=== PATIENT | male | born 1975 | race African-American/Black ===

== ENCOUNTER 2023-02-13 10:00 | Inpatient (IN) | payer OTHER ==
[2023-02-13] VITALS (18 sets, daily range): BP systolic 120–178; BP diastolic 72–121; TEMP 97.2–98.7; O2SAT 94–100
[~2023-02-13] VITALS: Ht 182.9 cm; Wt 68.8 kg
[2023-02-13] MEDS ORDERED: PANTOPRAZOLE 40MG VIAL IV ONE (10:20)
[2023-02-13] MEDS ORDERED: SUCRALFATE SUSP 1GM/10ML UD PO ONE (10:20)
[2023-02-13] MEDS ORDERED: NITROGLYCERIN 0.4MG SUBL TABLET SL PRN (10:55)
[2023-02-13 11:02] LABS: BASO % 0.3 % (0.0-1.0); EOS # 0.1 10^3/uL (0.0-0.5); EOS % 0.9 % (0.0-3.0); HEMATOCRIT 41.2 % (42.0-52.0); HEMOGLOBIN 13.5 g/dl (13.5-17.5); LYMPH # 1.2 10^3/uL (1.5-5.0); LYMPH % 17.8 % (24.0-44.0); MEAN CORPUSCULAR HEMOGLOBIN 30.3 pg (27.0-33.0); MEAN CORPUSCULAR HGB CONC 32.8 g/dl (32.0-36.5); MEAN CORPUSCULAR VOLUME 92.4 fl (80.0-96.0); MONO # 0.3 10^3/uL (0.0-0.8); MONO % 4.5 % (2.0-8.0); NEUTROPHILS # 5.3 10^3/uL (1.5-8.5); NEUTROPHILS % 76.4 % (36.0-66.0); PLATELET COUNT, AUTOMATED 232 10^3/uL (150-450); RED BLOOD COUNT 4.46 10^6/uL (4.30-6.10)
[2023-02-13 11:15] LABS: LIPASE 23 U/L (12-53)
[2023-02-13 11:16] LABS: CK-MB VALUE MASS 2.4 NG/ML (<3.6)
[2023-02-13 11:18] LABS: ALBUMIN 3.5 G/DL (3.2-5.2); ALKALINE PHOSPHATASE 72 U/L (46-116); ALT/SGPT 17 U/L (7.0-40); AST/SGOT 20 U/L (<34); BILIRUBIN,DIRECT 0.2 MG/DL (<0.4); BILIRUBIN,TOTAL 0.5 MG/DL (0.3-1.2); BLOOD UREA NITROGEN 10 MG/DL (9-23); CALCIUM LEVEL 8.7 MG/DL (8.5-10.1); CARBON DIOXIDE LEVEL 31 MMOL/L (20-31); CHLORIDE LEVEL 108 MMOL/L (98-107); CREATININE FOR GFR 0.97 MG/DL (0.70-1.30); GLOMERULAR FILTRATION RATE > 60.0 (>60); GLUCOSE, FASTING 129 MG/DL (60-100); POTASSIUM SERUM 4.8 MMOL/L (3.5-5.1); SODIUM LEVEL 141 MMOL/L (136-145); TOTAL PROTEIN 6.5 G/DL (5.7-8.2)
[2023-02-13 11:19] LABS: THYROID STIMULATING HORMONE 2.114 uIU/ML (0.55-4.78)
[2023-02-13 11:20] LABS: FREE T4 1.04 NG/DL (0.89-1.76)
[2023-02-13] MEDS ORDERED: ISOVUE-370 76% 100ML VIAL As Ordered ONE (11:23)
[2023-02-13] MEDS ORDERED: ONDANSETRON 4MG 2ML VIAL IV PRN (11:25)
[2023-02-13] MEDS ORDERED: LEVALBUTEROL 1.25MG 0.5ML CONCENTRATE NEB NEB PRN (11:25)
[2023-02-13] MEDS ORDERED: PERCOCET 5MG/325MG TAB PO PRN ×2 (11:25)
[2023-02-13] MEDS ORDERED: KCL 20MEQ IN D5/NS 1000ML 1,000 ML IV SCH (11:25)
[2023-02-13] MEDS ORDERED: BISACODYL 10MG SUPP PR PRN (11:25)
[2023-02-13 11:41] LABS: CPK CREATINE PHOSPHOKINASE 302 U/L (46-171); MB/CK RELATIVE INDEX 0.79 (< OR =4)
[2023-02-13] MEDS ORDERED: MED REC IN PROGRESS XX SCH (11:45)
[2023-02-13] MEDS: KETOROLAC 30 MG/ML 1ML VIAL IV SCH ×3 (12:06→23:55)
[2023-02-13] MEDS: HEPARIN SOD (PORCINE) 5000UNITS/ML 1ML VIAL/SYRINGE SC SCH ×2 (12:08→23:54)
[2023-02-13] MEDS ORDERED: LIDOCAINE 1% MDV 20ML VIAL SC STA (12:17)
[2023-02-13] MEDS ORDERED: MIDAZOLAM 5MG 5ML VIAL (FOR CHEST TUBE INSERTIONS) IV STA (12:17)
[2023-02-13] MEDS ORDERED: flumazeniL 0.5MG/5ML VIAL IV STA (12:17)
[2023-02-13] MEDS ORDERED: MIDAZOLAM INJ 2MG/2ML VIAL As Ordered ONE (12:30)
[2023-02-13] MEDS ORDERED: HYDR12.55 PO (12:30)
[2023-02-13] MEDS ORDERED: LORA-1041 PO (12:30)
[2023-02-13] MEDS ORDERED: MIDAZOLAM INJ 2MG/2ML VIAL IV STA (12:32)
[2023-02-13] MEDS ORDERED: hydrALAZINE 20MG/ML 1ML VIAL IV PRN (12:35)
[2023-02-13] MEDS ORDERED: HOME MED LIST COMPLETE! XX SCH (12:45)
[2023-02-13 13:11] LABS: MB/CK RELATIVE INDEX 0.7 (< OR =4)
[2023-02-13 13:23] LABS: CK-MB VALUE MASS 3.7 NG/ML (<3.6)
[2023-02-13 13:25] LABS: MB/CK RELATIVE INDEX 1.23 (< OR =4)
[2023-02-13] MEDS ORDERED: KETOROLAC 30 MG/ML 1ML VIAL IV ONE (14:00)
[2023-02-13] MEDS: LEVALBUTEROL 1.25MG 0.5ML CONCENTRATE NEB NEB SCH ×2 (14:53→20:06)
[2023-02-13] MEDS: hydroCHLOROthiazide 12.5 MG CAPSULE PO SCH (15:27)
[2023-02-13] MEDS: DOCUSATE SODIUM 100MG CAPSULE PO SCH (20:22)
[2023-02-14] VITALS (7 sets, daily range): BP systolic 128–157; BP diastolic 81–99; TEMP 97.2–98.3; O2SAT 97–100
[2023-02-14] MEDS: LEVALBUTEROL 1.25MG 0.5ML CONCENTRATE NEB NEB SCH ×4 (02:00→20:10)
[2023-02-14 05:41] LABS: ABG BASE EXCESS 1.4 (-2.0-2.0); ABG HCO3 26.6 MMOL/L (22.0-26.0); ABG O2 SATURATION 97.9 % (95.0-99.0); ABG PARTIAL PRESSURE CO2 44.2 mmHg (35.0-45.0); ABG PARTIAL PRESSURE O2 105.3 mmHg (75.0-100.0); ABG STANDARD HCO3 25.7 MMOL/L. (22.0-26.0); ABG TOTAL CO2 27.9 MMOL/L (22.0-29.0); ABG pH (ARTERIAL) 7.397 UNITS (7.350-7.450)
[2023-02-14] MEDS: ACETAMINOPHEN TAB 650MG DOSE (2X325MG) PO PRN (05:47)
[2023-02-14] MEDS: KETOROLAC 30 MG/ML 1ML VIAL IV SCH ×4 (05:47→23:20)
[2023-02-14 07:51] LABS: BASO % 0.3 % (0.0-1.0); EOS # 0.2 10^3/uL (0.0-0.5); EOS % 2.6 % (0.0-3.0); HEMATOCRIT 41.2 % (42.0-52.0); HEMOGLOBIN 13.7 g/dl (13.5-17.5); LYMPH # 2.4 10^3/uL (1.5-5.0); LYMPH % 35.9 % (24.0-44.0); MEAN CORPUSCULAR HEMOGLOBIN 30.4 pg (27.0-33.0); MEAN CORPUSCULAR HGB CONC 33.3 g/dl (32.0-36.5); MEAN CORPUSCULAR VOLUME 91.4 fl (80.0-96.0); MONO # 0.5 10^3/uL (0.0-0.8); MONO % 7.9 % (2.0-8.0); NEUTROPHILS # 3.5 10^3/uL (1.5-8.5); NEUTROPHILS % 53.1 % (36.0-66.0); PLATELET COUNT, AUTOMATED 247 10^3/uL (150-450); RED BLOOD COUNT 4.51 10^6/uL (4.30-6.10); WHITE BLOOD COUNT 6.6 10^3/uL (4.0-10.0)
[2023-02-14] MEDS: TIOTROPIUM INHALER/CAPSULE (SPIRIVA) INH SCH (08:00)
[2023-02-14 08:23] LABS: BLOOD UREA NITROGEN 12 MG/DL (9-23); CALCIUM LEVEL 8.9 MG/DL (8.5-10.1); CARBON DIOXIDE LEVEL 27 MMOL/L (20-31); CHLORIDE LEVEL 104 MMOL/L (98-107); CREATININE FOR GFR 0.97 MG/DL (0.70-1.30); GLOMERULAR FILTRATION RATE > 60.0 (>60); GLUCOSE, FASTING 129 MG/DL (60-100); POTASSIUM SERUM 3.8 MMOL/L (3.5-5.1); SODIUM LEVEL 139 MMOL/L (136-145)
[2023-02-14] MEDS: DOCUSATE SODIUM 100MG CAPSULE PO SCH ×2 (08:24→20:41)
[2023-02-14] MEDS: PANTOPRAZOLE 40MG TAB (PROTONIX) PO SCH (08:24)
[2023-02-14] MEDS: hydroCHLOROthiazide 12.5 MG CAPSULE PO SCH (08:25)
[2023-02-14] MEDS: MOM 30ML SUSPENSION UDC PO SCH (08:25)
[2023-02-14] MEDS: HEPARIN SOD (PORCINE) 5000UNITS/ML 1ML VIAL/SYRINGE SC SCH ×2 (12:45→23:20)
[2023-02-14] MEDS: NICOTINE 21MG/24HR 1 EA TRANSDERMAL TD SCH (12:54)
[2023-02-15] MEDS: LEVALBUTEROL 1.25MG 0.5ML CONCENTRATE NEB NEB SCH ×4 (01:28→19:38)
[2023-02-15 03:48] VITALS: BP 137/91; TEMP 97.6; O2SAT 100
[2023-02-15 05:27] LABS: BASO % 0.2 % (0.0-1.0); EOS # 0.2 10^3/uL (0.0-0.5); EOS % 3.4 % (0.0-3.0); HEMATOCRIT 39.6 % (42.0-52.0); HEMOGLOBIN 13.2 g/dl (13.5-17.5); LYMPH # 2.4 10^3/uL (1.5-5.0); LYMPH % 47.1 % (24.0-44.0); MEAN CORPUSCULAR HEMOGLOBIN 30.3 pg (27.0-33.0); MEAN CORPUSCULAR HGB CONC 33.3 g/dl (32.0-36.5); MEAN CORPUSCULAR VOLUME 90.8 fl (80.0-96.0); MONO # 0.4 10^3/uL (0.0-0.8); MONO % 8.8 % (2.0-8.0); NEUTROPHILS % 40.5 % (36.0-66.0); PLATELET COUNT, AUTOMATED 223 10^3/uL (150-450); RED BLOOD COUNT 4.36 10^6/uL (4.30-6.10)
[2023-02-15 05:48] LABS: BLOOD UREA NITROGEN 11 MG/DL (9-23); CALCIUM LEVEL 8.3 MG/DL (8.5-10.1); CARBON DIOXIDE LEVEL 30 MMOL/L (20-31); CHLORIDE LEVEL 104 MMOL/L (98-107); CREATININE FOR GFR 0.98 MG/DL (0.70-1.30); GLOMERULAR FILTRATION RATE > 60.0 (>60); GLUCOSE, FASTING 91 MG/DL (60-100); POTASSIUM SERUM 3.7 MMOL/L (3.5-5.1); SODIUM LEVEL 140 MMOL/L (136-145)
[2023-02-15] MEDS: KETOROLAC 30 MG/ML 1ML VIAL IV SCH ×4 (05:57→23:52)
[2023-02-15 08:28] VITALS: BP 149/93; TEMP 98.3; O2SAT 100
[2023-02-15] MEDS: DOCUSATE SODIUM 100MG CAPSULE PO SCH ×2 (08:44→21:30)
[2023-02-15] MEDS: ACETAMINOPHEN TAB 650MG DOSE (2X325MG) PO PRN (08:44)
[2023-02-15] MEDS: MOM 30ML SUSPENSION UDC PO SCH (08:44)
[2023-02-15] MEDS: hydroCHLOROthiazide 12.5 MG CAPSULE PO SCH (08:44)
[2023-02-15] MEDS: PANTOPRAZOLE 40MG TAB (PROTONIX) PO SCH (08:44)
[2023-02-15] MEDS: NICOTINE 21MG/24HR 1 EA TRANSDERMAL TD SCH (08:45)
[2023-02-15] MEDS: TIOTROPIUM INHALER/CAPSULE (SPIRIVA) INH SCH (09:28)
[2023-02-15] MEDS: MIRALAX *UNIT DOSE* 17GM PACKET PO SCH ×2 (10:00→21:00)
[2023-02-15] MEDS ORDERED: ISOVUE-370 76% 100ML VIAL As Ordered ONE (10:32)
[2023-02-15 12:00] VITALS: BP 165/100; TEMP 98.7; O2SAT 99
[2023-02-15] MEDS: HEPARIN SOD (PORCINE) 5000UNITS/ML 1ML VIAL/SYRINGE SC SCH ×2 (12:17→23:53)
[2023-02-15 16:02] VITALS: BP 145/83; TEMP 98.6; O2SAT 99
[2023-02-15 19:46] VITALS: BP 163/96; TEMP 98.2; O2SAT 98
[2023-02-15] MEDS: METAMUCIL (PSYLLIUM) PACKET PO SCH (21:00)
[2023-02-15 23:53] VITALS: BP 145/84; TEMP 98.6; O2SAT 99
[2023-02-16] MEDS: LEVALBUTEROL 1.25MG 0.5ML CONCENTRATE NEB NEB SCH ×4 (01:37→19:39)
[2023-02-16 03:56] VITALS: BP 127/82; TEMP 98.4; O2SAT 100
[2023-02-16] MEDS: KETOROLAC 30 MG/ML 1ML VIAL IV SCH ×4 (05:21→23:35)
[2023-02-16 05:56] LABS: BASO % 0.2 % (0.0-1.0); EOS # 0.2 10^3/uL (0.0-0.5); EOS % 4.2 % (0.0-3.0); HEMATOCRIT 38.6 % (42.0-52.0); HEMOGLOBIN 12.8 g/dl (13.5-17.5); LYMPH # 2.3 10^3/uL (1.5-5.0); LYMPH % 45.4 % (24.0-44.0); MEAN CORPUSCULAR HEMOGLOBIN 30.1 pg (27.0-33.0); MEAN CORPUSCULAR HGB CONC 33.2 g/dl (32.0-36.5); MEAN CORPUSCULAR VOLUME 90.8 fl (80.0-96.0); MONO # 0.4 10^3/uL (0.0-0.8); MONO % 7.6 % (2.0-8.0); NEUTROPHILS # 2.1 10^3/uL (1.5-8.5); NEUTROPHILS % 42.4 % (36.0-66.0); PLATELET COUNT, AUTOMATED 231 10^3/uL (150-450); RED BLOOD COUNT 4.25 10^6/uL (4.30-6.10)
[2023-02-16 06:20] LABS: BLOOD UREA NITROGEN 9 MG/DL (9-23); CALCIUM LEVEL 8.2 MG/DL (8.5-10.1); CARBON DIOXIDE LEVEL 30 MMOL/L (20-31); CHLORIDE LEVEL 103 MMOL/L (98-107); GLOMERULAR FILTRATION RATE > 60.0 (>60); GLUCOSE, FASTING 86 MG/DL (60-100); POTASSIUM SERUM 3.3 MMOL/L (3.5-5.1); SODIUM LEVEL 140 MMOL/L (136-145)
[2023-02-16 06:31] LABS: PROCALCITONIN <0.04 ng/ml
[2023-02-16] MEDS: TIOTROPIUM INHALER/CAPSULE (SPIRIVA) INH SCH (07:06)
[2023-02-16] MEDS ORDERED: POTASSIUM CHLORIDE 10MEQ SR TABLET PO ONE (07:30)
[2023-02-16 08:13] VITALS: BP 156/98; TEMP 97.8; O2SAT 100
[2023-02-16] MEDS: METAMUCIL (PSYLLIUM) PACKET PO SCH ×2 (09:00→20:02)
[2023-02-16] MEDS: MIRALAX *UNIT DOSE* 17GM PACKET PO SCH ×2 (09:00→20:02)
[2023-02-16] MEDS: MOM 30ML SUSPENSION UDC PO SCH (09:00)
[2023-02-16] MEDS: PANTOPRAZOLE 40MG TAB (PROTONIX) PO SCH (09:23)
[2023-02-16] MEDS: DOCUSATE SODIUM 100MG CAPSULE PO SCH ×2 (09:23→20:02)
[2023-02-16] MEDS: hydroCHLOROthiazide 12.5 MG CAPSULE PO SCH (09:23)
[2023-02-16] MEDS: NICOTINE 21MG/24HR 1 EA TRANSDERMAL TD SCH (09:24)
[2023-02-16] MEDS: HEPARIN SOD (PORCINE) 5000UNITS/ML 1ML VIAL/SYRINGE SC SCH ×2 (12:12→23:32)
[2023-02-16 12:29] VITALS: BP 148/80; TEMP 97.5; O2SAT 100
[2023-02-16 12:33] LABS: PARTIAL THROMBOPLASTIN TIME 29.7 SECONDS (24.8-34.2); PROTHROMBIN TIME 12.9 SECONDS (12.5-14.5)
[2023-02-16 16:13] VITALS: BP 160/85; TEMP 97.3; O2SAT 98
[2023-02-16 16:34] VITALS: BP 144/82
[2023-02-16 20:26] VITALS: BP 158/96; TEMP 97.9; O2SAT 96
[2023-02-17] VITALS: BP 155/86; TEMP 97.9; O2SAT 98
[2023-02-17] MEDS: LEVALBUTEROL 1.25MG 0.5ML CONCENTRATE NEB NEB SCH ×5 (00:45→20:50)
[2023-02-17 04:00] VITALS: BP 144/87; TEMP 97.7; O2SAT 97
[2023-02-17] MEDS: KETOROLAC 30 MG/ML 1ML VIAL IV SCH ×3 (05:29→18:00)
[2023-02-17 07:33] LABS: BASO % 0.2 % (0.0-1.0); EOS # 0.2 10^3/uL (0.0-0.5); EOS % 3.1 % (0.0-3.0); HEMATOCRIT 38.4 % (42.0-52.0); HEMOGLOBIN 12.6 g/dl (13.5-17.5); LYMPH % 35.8 % (24.0-44.0); MEAN CORPUSCULAR HEMOGLOBIN 30.2 pg (27.0-33.0); MEAN CORPUSCULAR HGB CONC 32.8 g/dl (32.0-36.5); MEAN CORPUSCULAR VOLUME 92.1 fl (80.0-96.0); MONO # 0.4 10^3/uL (0.0-0.8); MONO % 7.7 % (2.0-8.0); NEUTROPHILS # 2.9 10^3/uL (1.5-8.5); NEUTROPHILS % 52.6 % (36.0-66.0); PLATELET COUNT, AUTOMATED 248 10^3/uL (150-450); RED BLOOD COUNT 4.17 10^6/uL (4.30-6.10); WHITE BLOOD COUNT 5.5 10^3/uL (4.0-10.0)
[2023-02-17 07:47] VITALS: BP 142/110; TEMP 97.7; O2SAT 97
[2023-02-17 08:24] LABS: BLOOD UREA NITROGEN 10 MG/DL (9-23); CALCIUM LEVEL 8.8 MG/DL (8.5-10.1); CARBON DIOXIDE LEVEL 27 MMOL/L (20-31); CHLORIDE LEVEL 106 MMOL/L (98-107); CREATININE FOR GFR 0.92 MG/DL (0.70-1.30); GLOMERULAR FILTRATION RATE > 60.0 (>60); GLUCOSE, FASTING 106 MG/DL (60-100); POTASSIUM SERUM 3.8 MMOL/L (3.5-5.1); SODIUM LEVEL 142 MMOL/L (136-145)
[2023-02-17] MEDS: METAMUCIL (PSYLLIUM) PACKET PO SCH ×2 (09:00→21:00)
[2023-02-17] MEDS: MOM 30ML SUSPENSION UDC PO SCH (09:00)
[2023-02-17] MEDS: MIRALAX *UNIT DOSE* 17GM PACKET PO SCH ×2 (09:00→21:00)
[2023-02-17] MEDS: PANTOPRAZOLE 40MG TAB (PROTONIX) PO SCH (09:39)
[2023-02-17] MEDS: NICOTINE 21MG/24HR 1 EA TRANSDERMAL TD SCH (09:39)
[2023-02-17] MEDS: DOCUSATE SODIUM 100MG CAPSULE PO SCH ×2 (09:39→21:00)
[2023-02-17] MEDS: CHLORTHALIDONE 25 MG TAB PO SCH (10:00)
[2023-02-17] MEDS: TIOTROPIUM INHALER/CAPSULE (SPIRIVA) INH SCH (11:22)
[2023-02-17 11:51] VITALS: BP 138/90; TEMP 97.5; O2SAT 98
[2023-02-17] MEDS: HEPARIN SOD (PORCINE) 5000UNITS/ML 1ML VIAL/SYRINGE SC SCH (13:02)
[2023-02-17 16:00] VITALS: BP 128/92; TEMP 97.6; O2SAT 97
[2023-02-17 20:00] VITALS: BP 136/84; TEMP 98.8; O2SAT 97
[2023-02-18] VITALS (14 sets, daily range): BP systolic 133–165; BP diastolic 68–108; TEMP 96.8–98.5; O2SAT 90–98
[2023-02-18] MEDS: LEVALBUTEROL 1.25MG 0.5ML CONCENTRATE NEB NEB SCH ×4 (00:38→19:44)
[2023-02-18] MEDS: KETOROLAC 30 MG/ML 1ML VIAL IV SCH ×4 (01:43→23:46)
[2023-02-18] MEDS ORDERED: ceFAZolin SOD 2 GM in IV 1 EA IV ONE (06:00)
[2023-02-18] MEDS ORDERED: MUPIROCIN 2% OINT 22 GM TUBE TOP ONE (06:00)
[2023-02-18 06:31] LABS: BASO % 0.2 % (0.0-1.0); EOS # 0.1 10^3/uL (0.0-0.5); EOS % 2.1 % (0.0-3.0); HEMATOCRIT 38.2 % (42.0-52.0); HEMOGLOBIN 12.4 g/dl (13.5-17.5); LYMPH # 1.9 10^3/uL (1.5-5.0); LYMPH % 37.3 % (24.0-44.0); MEAN CORPUSCULAR HGB CONC 32.5 g/dl (32.0-36.5); MEAN CORPUSCULAR VOLUME 92.3 fl (80.0-96.0); MONO # 0.4 10^3/uL (0.0-0.8); MONO % 7.5 % (2.0-8.0); NEUTROPHILS # 2.7 10^3/uL (1.5-8.5); NEUTROPHILS % 52.1 % (36.0-66.0); PLATELET COUNT, AUTOMATED 238 10^3/uL (150-450); RED BLOOD COUNT 4.14 10^6/uL (4.30-6.10); WHITE BLOOD COUNT 5.2 10^3/uL (4.0-10.0)
[2023-02-18 07:03] LABS: BLOOD UREA NITROGEN 10 MG/DL (9-23); CALCIUM LEVEL 8.2 MG/DL (8.5-10.1); CARBON DIOXIDE LEVEL 30 MMOL/L (20-31); CHLORIDE LEVEL 104 MMOL/L (98-107); CREATININE FOR GFR 0.88 MG/DL (0.70-1.30); GLOMERULAR FILTRATION RATE > 60.0 (>60); GLUCOSE, FASTING 81 MG/DL (60-100); POTASSIUM SERUM 3.8 MMOL/L (3.5-5.1); SODIUM LEVEL 140 MMOL/L (136-145)
[2023-02-18] MEDS ORDERED: propofoL 200 MG/20 ML VIAL As Ordered ONE (07:05)
[2023-02-18] MEDS ORDERED: ROCURONIUM BROMIDE 50MG/5ML VIAL As Ordered ONE ×2 (07:05→09:51)
[2023-02-18] MEDS ORDERED: SUGAMMADEX SODIUM 500 MG/5 ML VIAL (BRIDION) As Ordered ONE (07:05)
[2023-02-18] MEDS ORDERED: ONDANSETRON 4MG 2ML VIAL As Ordered ONE (07:05)
[2023-02-18] MEDS ORDERED: KETOROLAC 60MG 2ML VIAL As Ordered ONE (07:05)
[2023-02-18] MEDS ORDERED: LIDOCAINE 2% 100MG/5ML SDV (FOR ANES.) As Ordered ONE (07:05)
[2023-02-18] MEDS: TIOTROPIUM INHALER/CAPSULE (SPIRIVA) INH SCH (08:00)
[2023-02-18] MEDS ORDERED: CETACAINE SPRAY 5GM As Ordered ONE (08:03)
[2023-02-18] MEDS ORDERED: MUPIROCIN 2% OINT 22 GM TUBE As Ordered ONE (08:04)
[2023-02-18] MEDS ORDERED: ONDANSETRON 4MG 2ML VIAL IV PRN (08:10)
[2023-02-18] MEDS ORDERED: NALOXONE INJ 0.4MG/1ML VIAL IV PRN (08:10)
[2023-02-18] MEDS ORDERED: METOCLOPRAMIDE INJ 10MG/2ML VIAL IV PRN (08:10)
[2023-02-18] MEDS ORDERED: EPIDURAL/PCA KEYS XX PRN (08:10)
[2023-02-18] MEDS ORDERED: NALBUPHINE HCL 1MG/0.1ML (100MG/10ML) MDV IV PRN (08:10)
[2023-02-18] MEDS ORDERED: STERILE TALC POWDER 3GM VIAL As Ordered ONE (08:18)
[2023-02-18] MEDS: MIDAZOLAM INJ 2MG/2ML VIAL IV PRN ×2 (08:31→08:58)
[2023-02-18] MEDS ORDERED: fentaNYL 100 MCG/2 ML INJECTION As Ordered ONE ×2 (08:35→10:16)
[2023-02-18] MEDS ORDERED: LIDOCAINE 2% W/EPINEPHRINE 20ML VIAL **PRES FREE As Ordered ONE (08:39)
[2023-02-18] MEDS ORDERED: ceFAZolin 2 GM/D5W 50 ML IV BAG As Ordered ONE (08:43)
[2023-02-18] MEDS: MOM 30ML SUSPENSION UDC PO SCH (09:00)
[2023-02-18] MEDS: MIRALAX *UNIT DOSE* 17GM PACKET PO SCH ×2 (09:00→20:07)
[2023-02-18] MEDS: METAMUCIL (PSYLLIUM) PACKET PO SCH ×2 (09:00→20:07)
[2023-02-18] MEDS ORDERED: ACETAMINOPHEN 1000MG 100ML IV BAG As Ordered ONE (09:52)
[2023-02-18] MEDS ORDERED: TALCAIR POWDER BLOWER (CAN ONLY BE USED WITH 3GM TALC VIAL) XX ONE (10:08)
[2023-02-18] MEDS ORDERED: LR 1,000 ML IV SCH (11:35)
[2023-02-18] MEDS ORDERED: fentaNYL 100 MCG/2 ML INJECTION IV PRN (11:35)
[2023-02-18] MEDS ORDERED: HYDROMORPHONE HCL 0.5 MG/ 0.5 ML SYRINGE IV PRN (11:35)
[2023-02-18] MEDS ORDERED: oxyCODONE 5MG TAB PO PRN (11:35)
[2023-02-18] MEDS ORDERED: LEVALBUTEROL 1.25MG 0.5ML CONCENTRATE NEB NEB PRN (11:40)
[2023-02-18] MEDS ORDERED: PERCOCET 5MG/325MG TAB PO PRN (11:40)
[2023-02-18] MEDS: FENTANYL/BUPIVACAINE/NACL BAG 250 ML EPIDURAL SCH (12:00)
[2023-02-18 12:14] LABS: ABG BASE EXCESS 2.6 (-2.0-2.0); ABG HCO3 30.5 MMOL/L (22.0-26.0); ABG O2 SATURATION 99.4 % (95.0-99.0); ABG PARTIAL PRESSURE O2 238.9 mmHg (75.0-100.0); ABG STANDARD HCO3 26.8 MMOL/L. (22.0-26.0); ABG TOTAL CO2 32.4 MMOL/L (22.0-29.0); ABG pH (ARTERIAL) 7.314 UNITS (7.350-7.450)
[2023-02-18 12:20] LABS: ABG PARTIAL PRESSURE CO2 61.4 mmHg (35.0-45.0)
[2023-02-18 12:24] LABS: BASO % 0.1 % (0.0-1.0); EOS # 0.1 10^3/uL (0.0-0.5); EOS % 1.6 % (0.0-3.0); HEMATOCRIT 41.4 % (42.0-52.0); HEMOGLOBIN 13.3 g/dl (13.5-17.5); LYMPH # 1.6 10^3/uL (1.5-5.0); LYMPH % 23.3 % (24.0-44.0); MEAN CORPUSCULAR HEMOGLOBIN 29.9 pg (27.0-33.0); MEAN CORPUSCULAR HGB CONC 32.1 g/dl (32.0-36.5); MONO # 0.3 10^3/uL (0.0-0.8); NEUTROPHILS # 4.7 10^3/uL (1.5-8.5); NEUTROPHILS % 70.3 % (36.0-66.0); PLATELET COUNT, AUTOMATED 227 10^3/uL (150-450); RED BLOOD COUNT 4.45 10^6/uL (4.30-6.10); WHITE BLOOD COUNT 6.7 10^3/uL (4.0-10.0)
[2023-02-18 12:49] LABS: BLOOD UREA NITROGEN 11 MG/DL (9-23); CALCIUM LEVEL 8.8 MG/DL (8.5-10.1); CARBON DIOXIDE LEVEL 30 MMOL/L (20-31); CHLORIDE LEVEL 106 MMOL/L (98-107); CREATININE FOR GFR 0.92 MG/DL (0.70-1.30); GLOMERULAR FILTRATION RATE > 60.0 (>60); GLUCOSE, FASTING 102 MG/DL (60-100); POTASSIUM SERUM 4.5 MMOL/L (3.5-5.1); SODIUM LEVEL 141 MMOL/L (136-145)
[2023-02-18 12:51] LABS: ABG HCO3 27.6 MMOL/L (22.0-26.0); ABG O2 SATURATION 98.3 % (95.0-99.0); ABG PARTIAL PRESSURE CO2 52.4 mmHg (35.0-45.0); ABG STANDARD HCO3 25.3 MMOL/L. (22.0-26.0); ABG TOTAL CO2 29.2 MMOL/L (22.0-29.0)
[2023-02-18] MEDS ORDERED: KCL 20MEQ IN D5/NS 1000ML 1,000 ML IV SCH (13:00)
[2023-02-18] MEDS ORDERED: hydrALAZINE 20MG/ML 1ML VIAL IV PRN (13:00)
[2023-02-18] MEDS ORDERED: hydrALAZINE 20MG/ML 1ML VIAL As Ordered ONE (13:02)
[2023-02-18] MEDS: DOCUSATE SODIUM 100MG CAPSULE PO SCH ×2 (14:08→20:11)
[2023-02-18] MEDS: PANTOPRAZOLE 40MG TAB (PROTONIX) PO SCH (14:08)
[2023-02-18] MEDS: CHLORTHALIDONE 25 MG TAB PO SCH (14:08)
[2023-02-18] MEDS: NICOTINE 21MG/24HR 1 EA TRANSDERMAL TD SCH (14:10)
[2023-02-18] MEDS: ceFAZolin SOD 1 GM in D5W MINI-BAG PLUS 50 ML IV SCH (17:22)
[2023-02-18] MEDS: HEPARIN SOD (PORCINE) 5000UNITS/ML 1ML VIAL/SYRINGE SC SCH (20:11)
[2023-02-19] VITALS (13 sets, daily range): BP systolic 105–161; BP diastolic 57–96; TEMP 97.4–98.9; O2SAT 93–100
[2023-02-19] MEDS: METAMUCIL (PSYLLIUM) PACKET PO SCH ×3 (01:10→20:44)
[2023-02-19] MEDS: MIRALAX *UNIT DOSE* 17GM PACKET PO SCH ×3 (01:10→20:44)
[2023-02-19] MEDS: ceFAZolin SOD 1 GM in D5W MINI-BAG PLUS 50 ML IV SCH ×3 (01:11→16:23)
[2023-02-19] MEDS: LEVALBUTEROL 1.25MG 0.5ML CONCENTRATE NEB NEB SCH ×4 (01:57→19:34)
[2023-02-19 05:11] LABS: ABG BASE EXCESS 1.6 (-2.0-2.0); ABG HCO3 26.5 MMOL/L (22.0-26.0); ABG O2 SATURATION 95.3 % (95.0-99.0); ABG PARTIAL PRESSURE CO2 42.7 mmHg (35.0-45.0); ABG PARTIAL PRESSURE O2 73.1 mmHg (75.0-100.0); ABG STANDARD HCO3 25.8 MMOL/L. (22.0-26.0); ABG TOTAL CO2 27.8 MMOL/L (22.0-29.0)
[2023-02-19 05:29] LABS: EOS # 0.2 10^3/uL (0.0-0.5); EOS % 2.5 % (0.0-3.0); HEMATOCRIT 38.4 % (42.0-52.0); HEMOGLOBIN 12.5 g/dl (13.5-17.5); LYMPH # 1.7 10^3/uL (1.5-5.0); MEAN CORPUSCULAR HEMOGLOBIN 29.7 pg (27.0-33.0); MEAN CORPUSCULAR HGB CONC 32.6 g/dl (32.0-36.5); MEAN CORPUSCULAR VOLUME 91.2 fl (80.0-96.0); MONO # 0.6 10^3/uL (0.0-0.8); NEUTROPHILS # 6.5 10^3/uL (1.5-8.5); NEUTROPHILS % 71.2 % (36.0-66.0); PLATELET COUNT, AUTOMATED 222 10^3/uL (150-450); RED BLOOD COUNT 4.21 10^6/uL (4.30-6.10); WHITE BLOOD COUNT 9.2 10^3/uL (4.0-10.0)
[2023-02-19] MEDS: KETOROLAC 30 MG/ML 1ML VIAL IV SCH ×3 (05:39→18:10)
[2023-02-19 05:40] LABS: BLOOD UREA NITROGEN 10 MG/DL (9-23); CALCIUM LEVEL 8.5 MG/DL (8.5-10.1); CARBON DIOXIDE LEVEL 29 MMOL/L (20-31); CHLORIDE LEVEL 103 MMOL/L (98-107); CREATININE FOR GFR 1.02 MG/DL (0.70-1.30); GLOMERULAR FILTRATION RATE > 60.0 (>60); GLUCOSE, FASTING 105 MG/DL (60-100); POTASSIUM SERUM 4.2 MMOL/L (3.5-5.1); SODIUM LEVEL 137 MMOL/L (136-145)
[2023-02-19] MEDS: MOM 30ML SUSPENSION UDC PO SCH (09:00)
[2023-02-19] MEDS: NICOTINE 21MG/24HR 1 EA TRANSDERMAL TD SCH (09:58)
[2023-02-19] MEDS: HEPARIN SOD (PORCINE) 5000UNITS/ML 1ML VIAL/SYRINGE SC SCH ×2 (09:58→20:44)
[2023-02-19] MEDS: PANTOPRAZOLE 40MG TAB (PROTONIX) PO SCH (09:59)
[2023-02-19] MEDS: DOCUSATE SODIUM 100MG CAPSULE PO SCH ×2 (09:59→20:44)
[2023-02-19] MEDS: CHLORTHALIDONE 25 MG TAB PO SCH (09:59)
[2023-02-19] MEDS: TIOTROPIUM INHALER/CAPSULE (SPIRIVA) INH SCH (10:16)
[2023-02-19] MEDS: diphenhydrAMINE 50MG/ML VIAL IV PRN ×3 (12:54→21:28)
[2023-02-19] MEDS: FENTANYL/BUPIVACAINE/NACL BAG 250 ML EPIDURAL SCH (13:54)
[2023-02-19 16:09] LABS: A1A FOR PHENOTYPE 146 mg/dL (101-187)
[2023-02-19] MEDS: PERCOCET 5MG/325MG TAB PO PRN (16:25)
[2023-02-20] VITALS (7 sets, daily range): BP systolic 121–148; BP diastolic 70–93; TEMP 96.7–98.6; O2SAT 95–99
[2023-02-20] MEDS: KETOROLAC 30 MG/ML 1ML VIAL IV SCH ×5 (00:06→23:22)
[2023-02-20] MEDS: LEVALBUTEROL 1.25MG 0.5ML CONCENTRATE NEB NEB SCH ×4 (00:31→19:54)
[2023-02-20] MEDS: ceFAZolin SOD 1 GM in D5W MINI-BAG PLUS 50 ML IV SCH ×2 (01:32→09:29)
[2023-02-20] MEDS: diphenhydrAMINE 50MG/ML VIAL IV PRN ×2 (01:32→18:36)
[2023-02-20] MEDS: ACETAMINOPHEN TAB 650MG DOSE (2X325MG) PO PRN (05:00)
[2023-02-20 05:40] LABS: EOS # 0.3 10^3/uL (0.0-0.5); EOS % 3.8 % (0.0-3.0); HEMATOCRIT 36.7 % (42.0-52.0); HEMOGLOBIN 11.9 g/dl (13.5-17.5); LYMPH # 1.7 10^3/uL (1.5-5.0); MEAN CORPUSCULAR HEMOGLOBIN 29.9 pg (27.0-33.0); MEAN CORPUSCULAR HGB CONC 32.4 g/dl (32.0-36.5); MEAN CORPUSCULAR VOLUME 92.2 fl (80.0-96.0); MONO # 0.7 10^3/uL (0.0-0.8); MONO % 9.8 % (2.0-8.0); NEUTROPHILS % 59.8 % (36.0-66.0); PLATELET COUNT, AUTOMATED 212 10^3/uL (150-450); RED BLOOD COUNT 3.98 10^6/uL (4.30-6.10); WHITE BLOOD COUNT 6.7 10^3/uL (4.0-10.0)
[2023-02-20 06:00] LABS: BLOOD UREA NITROGEN 14 MG/DL (9-23); CALCIUM LEVEL 8.1 MG/DL (8.5-10.1); CARBON DIOXIDE LEVEL 32 MMOL/L (20-31); CHLORIDE LEVEL 103 MMOL/L (98-107); CREATININE FOR GFR 1.11 MG/DL (0.70-1.30); GLOMERULAR FILTRATION RATE > 60.0 (>60); GLUCOSE, FASTING 90 MG/DL (60-100); SODIUM LEVEL 140 MMOL/L (136-145)
[2023-02-20] MEDS: TIOTROPIUM INHALER/CAPSULE (SPIRIVA) INH SCH (09:06)
[2023-02-20] MEDS: NICOTINE 21MG/24HR 1 EA TRANSDERMAL TD SCH (09:28)
[2023-02-20] MEDS: MIRALAX *UNIT DOSE* 17GM PACKET PO SCH ×2 (09:29→20:01)
[2023-02-20] MEDS: METAMUCIL (PSYLLIUM) PACKET PO SCH ×2 (09:29→20:01)
[2023-02-20] MEDS: HEPARIN SOD (PORCINE) 5000UNITS/ML 1ML VIAL/SYRINGE SC SCH ×2 (09:29→20:17)
[2023-02-20] MEDS: MOM 30ML SUSPENSION UDC PO SCH (09:29)
[2023-02-20] MEDS: DOCUSATE SODIUM 100MG CAPSULE PO SCH ×2 (09:30→20:01)
[2023-02-20] MEDS: PANTOPRAZOLE 40MG TAB (PROTONIX) PO SCH (09:30)
[2023-02-20] MEDS: CHLORTHALIDONE 25 MG TAB PO SCH (09:30)
[2023-02-20] MEDS: FENTANYL/BUPIVACAINE/NACL BAG 250 ML EPIDURAL SCH (16:06)
[2023-02-21] MEDS: ACETAMINOPHEN TAB 650MG DOSE (2X325MG) PO PRN ×3 (02:14→22:31)
[2023-02-21] MEDS: LEVALBUTEROL 1.25MG 0.5ML CONCENTRATE NEB NEB SCH ×4 (02:28→20:28)
[2023-02-21 03:05] VITALS: BP 158/90; TEMP 98; O2SAT 97
[2023-02-21] MEDS: KETOROLAC 30 MG/ML 1ML VIAL IV SCH ×3 (05:15→18:22)
[2023-02-21 06:18] LABS: BASO % 0.1 % (0.0-1.0); EOS # 0.3 10^3/uL (0.0-0.5); EOS % 4.3 % (0.0-3.0); HEMOGLOBIN 12.5 g/dl (13.5-17.5); LYMPH # 1.7 10^3/uL (1.5-5.0); LYMPH % 25.5 % (24.0-44.0); MEAN CORPUSCULAR HEMOGLOBIN 30.5 pg (27.0-33.0); MEAN CORPUSCULAR HGB CONC 32.9 g/dl (32.0-36.5); MEAN CORPUSCULAR VOLUME 92.7 fl (80.0-96.0); MONO # 0.8 10^3/uL (0.0-0.8); MONO % 11.1 % (2.0-8.0); NEUTROPHILS # 3.9 10^3/uL (1.5-8.5); NEUTROPHILS % 58.1 % (36.0-66.0); PLATELET COUNT, AUTOMATED 217 10^3/uL (150-450); WHITE BLOOD COUNT 6.8 10^3/uL (4.0-10.0)
[2023-02-21 06:58] LABS: BLOOD UREA NITROGEN 13 MG/DL (9-23); CALCIUM LEVEL 8.7 MG/DL (8.5-10.1); CARBON DIOXIDE LEVEL 31 MMOL/L (20-31); CHLORIDE LEVEL 102 MMOL/L (98-107); CREATININE FOR GFR 1.02 MG/DL (0.70-1.30); GLOMERULAR FILTRATION RATE > 60.0 (>60); GLUCOSE, FASTING 115 MG/DL (60-100); POTASSIUM SERUM 4.1 MMOL/L (3.5-5.1); SODIUM LEVEL 139 MMOL/L (136-145)
[2023-02-21] MEDS: TIOTROPIUM INHALER/CAPSULE (SPIRIVA) INH SCH (07:23)
[2023-02-21 08:06] VITALS: BP 180/88; TEMP 98.6; O2SAT 98
[2023-02-21] MEDS: MIRALAX *UNIT DOSE* 17GM PACKET PO SCH ×2 (09:00→21:00)
[2023-02-21] MEDS: MOM 30ML SUSPENSION UDC PO SCH (09:00)
[2023-02-21] MEDS: METAMUCIL (PSYLLIUM) PACKET PO SCH ×2 (09:00→21:00)
[2023-02-21] MEDS: NICOTINE 21MG/24HR 1 EA TRANSDERMAL TD SCH (09:42)
[2023-02-21] MEDS: PANTOPRAZOLE 40MG TAB (PROTONIX) PO SCH (09:43)
[2023-02-21] MEDS: LORATADINE 10 MG TAB PO SCH (09:43)
[2023-02-21] MEDS: hydroCHLOROthiazide 12.5 MG CAPSULE PO SCH (09:43)
[2023-02-21] MEDS: CHLORTHALIDONE 25 MG TAB PO SCH (09:43)
[2023-02-21] MEDS: DOCUSATE SODIUM 100MG CAPSULE PO SCH ×2 (09:44→21:00)
[2023-02-21] MEDS: HEPARIN SOD (PORCINE) 5000UNITS/ML 1ML VIAL/SYRINGE SC SCH ×2 (09:44→22:32)
[2023-02-21] MEDS: diphenhydrAMINE 50MG/ML VIAL IV PRN (10:36)
[2023-02-21 11:33] VITALS: BP 125/84; TEMP 98.4; O2SAT 96
[2023-02-21] MEDS: FENTANYL/BUPIVACAINE/NACL BAG 250 ML EPIDURAL SCH (16:39)
[2023-02-21 20:00] VITALS: BP 148/100; TEMP 97.3; O2SAT 96
[2023-02-22] VITALS: BP 176/102; TEMP 98.2; O2SAT 96
[2023-02-22] MEDS ORDERED: **hydrALAZINE** 10 MG TAB PO ONE (00:30)
[2023-02-22] MEDS: KETOROLAC 30 MG/ML 1ML VIAL IV SCH ×4 (00:52→17:39)
[2023-02-22] MEDS: LEVALBUTEROL 1.25MG 0.5ML CONCENTRATE NEB NEB SCH ×4 (01:04→19:09)
[2023-02-22] MEDS: diphenhydrAMINE 50MG/ML VIAL IV PRN (01:05)
[2023-02-22 04:00] VITALS: BP 150/98; TEMP 97.5; O2SAT 99
[2023-02-22 06:01] LABS: BASO % 0.3 % (0.0-1.0); EOS # 0.5 10^3/uL (0.0-0.5); EOS % 6.7 % (0.0-3.0); HEMATOCRIT 38.7 % (42.0-52.0); HEMOGLOBIN 12.7 g/dl (13.5-17.5); LYMPH # 1.9 10^3/uL (1.5-5.0); LYMPH % 26.6 % (24.0-44.0); MEAN CORPUSCULAR HEMOGLOBIN 30.8 pg (27.0-33.0); MEAN CORPUSCULAR HGB CONC 32.8 g/dl (32.0-36.5); MEAN CORPUSCULAR VOLUME 93.7 fl (80.0-96.0); MONO # 0.7 10^3/uL (0.0-0.8); MONO % 9.5 % (2.0-8.0); NEUTROPHILS % 55.1 % (36.0-66.0); PLATELET COUNT, AUTOMATED 238 10^3/uL (150-450); RED BLOOD COUNT 4.13 10^6/uL (4.30-6.10); WHITE BLOOD COUNT 7.2 10^3/uL (4.0-10.0)
[2023-02-22 06:24] LABS: BLOOD UREA NITROGEN 11 MG/DL (9-23); CALCIUM LEVEL 9.2 MG/DL (8.5-10.1); CARBON DIOXIDE LEVEL 28 MMOL/L (20-31); CHLORIDE LEVEL 102 MMOL/L (98-107); CREATININE FOR GFR 0.92 MG/DL (0.70-1.30); GLOMERULAR FILTRATION RATE > 60.0 (>60); GLUCOSE, FASTING 133 MG/DL (60-100); POTASSIUM SERUM 4.1 MMOL/L (3.5-5.1); SODIUM LEVEL 138 MMOL/L (136-145)
[2023-02-22] MEDS: TIOTROPIUM INHALER/CAPSULE (SPIRIVA) INH SCH (08:04)
[2023-02-22 08:14] VITALS: BP 146/93; TEMP 97.6; O2SAT 99
[2023-02-22] MEDS: PANTOPRAZOLE 40MG TAB (PROTONIX) PO SCH (08:42)
[2023-02-22] MEDS: PERCOCET 5MG/325MG TAB PO PRN ×3 (08:42→22:19)
[2023-02-22] MEDS: hydroCHLOROthiazide 12.5 MG CAPSULE PO SCH (08:42)
[2023-02-22] MEDS: LORATADINE 10 MG TAB PO SCH (08:43)
[2023-02-22] MEDS: CHLORTHALIDONE 25 MG TAB PO SCH (08:43)
[2023-02-22] MEDS: METAMUCIL (PSYLLIUM) PACKET PO SCH ×2 (08:43→21:00)
[2023-02-22] MEDS: HEPARIN SOD (PORCINE) 5000UNITS/ML 1ML VIAL/SYRINGE SC SCH ×2 (08:43→22:18)
[2023-02-22] MEDS: DOCUSATE SODIUM 100MG CAPSULE PO SCH ×2 (08:43→21:00)
[2023-02-22] MEDS: MOM 30ML SUSPENSION UDC PO SCH (08:44)
[2023-02-22] MEDS: MIRALAX *UNIT DOSE* 17GM PACKET PO SCH ×2 (08:44→21:00)
[2023-02-22] MEDS: NICOTINE 21MG/24HR 1 EA TRANSDERMAL TD SCH (08:44)
[2023-02-22 12:17] VITALS: BP 123/74; TEMP 97.4; O2SAT 98
[2023-02-22 16:01] VITALS: BP 133/83; TEMP 97.6; O2SAT 100
[2023-02-22 20:00] VITALS: BP 155/90; TEMP 97.5; O2SAT 95
[2023-02-23] VITALS (7 sets, daily range): BP systolic 132–160; BP diastolic 81–100; TEMP 96.9–98.4; O2SAT 97–100
[2023-02-23] MEDS: KETOROLAC 30 MG/ML 1ML VIAL IV SCH ×4 (00:12→20:12)
[2023-02-23] MEDS: LEVALBUTEROL 1.25MG 0.5ML CONCENTRATE NEB NEB SCH ×4 (01:17→19:45)
[2023-02-23] MEDS: PERCOCET 5MG/325MG TAB PO PRN ×4 (03:24→22:12)
[2023-02-23 05:40] LABS: BASO % 0.3 % (0.0-1.0); EOS # 0.6 10^3/uL (0.0-0.5); EOS % 7.8 % (0.0-3.0); HEMATOCRIT 43.2 % (42.0-52.0); HEMOGLOBIN 13.7 g/dl (13.5-17.5); LYMPH # 2.2 10^3/uL (1.5-5.0); LYMPH % 31.6 % (24.0-44.0); MEAN CORPUSCULAR HEMOGLOBIN 29.7 pg (27.0-33.0); MEAN CORPUSCULAR HGB CONC 31.7 g/dl (32.0-36.5); MEAN CORPUSCULAR VOLUME 93.5 fl (80.0-96.0); MONO # 0.7 10^3/uL (0.0-0.8); MONO % 10.4 % (2.0-8.0); NEUTROPHILS # 3.4 10^3/uL (1.5-8.5); NEUTROPHILS % 47.2 % (36.0-66.0); PLATELET COUNT, AUTOMATED 284 10^3/uL (150-450); RED BLOOD COUNT 4.62 10^6/uL (4.30-6.10); WHITE BLOOD COUNT 7.1 10^3/uL (4.0-10.0)
[2023-02-23 06:00] LABS: BLOOD UREA NITROGEN 13 MG/DL (9-23); CALCIUM LEVEL 9.1 MG/DL (8.5-10.1); CARBON DIOXIDE LEVEL 32 MMOL/L (20-31); CHLORIDE LEVEL 99 MMOL/L (98-107); CREATININE FOR GFR 1.21 MG/DL (0.70-1.30); GLOMERULAR FILTRATION RATE > 60.0 (>60); GLUCOSE, FASTING 103 MG/DL (60-100); POTASSIUM SERUM 4.3 MMOL/L (3.5-5.1); SODIUM LEVEL 137 MMOL/L (136-145)
[2023-02-23] MEDS: TIOTROPIUM INHALER/CAPSULE (SPIRIVA) INH SCH (07:16)
[2023-02-23] MEDS: MOM 30ML SUSPENSION UDC PO SCH (08:44)
[2023-02-23] MEDS: MIRALAX *UNIT DOSE* 17GM PACKET PO SCH ×2 (08:44→19:49)
[2023-02-23] MEDS: HEPARIN SOD (PORCINE) 5000UNITS/ML 1ML VIAL/SYRINGE SC SCH ×2 (08:54→20:10)
[2023-02-23] MEDS: NICOTINE 21MG/24HR 1 EA TRANSDERMAL TD SCH (08:54)
[2023-02-23] MEDS: hydroCHLOROthiazide 12.5 MG CAPSULE PO SCH (08:55)
[2023-02-23] MEDS: CHLORTHALIDONE 25 MG TAB PO SCH (08:55)
[2023-02-23] MEDS: DOCUSATE SODIUM 100MG CAPSULE PO SCH ×2 (08:55→20:12)
[2023-02-23] MEDS: LORATADINE 10 MG TAB PO SCH (08:55)
[2023-02-23] MEDS: PANTOPRAZOLE 40MG TAB (PROTONIX) PO SCH (08:56)
[2023-02-23] MEDS: METAMUCIL (PSYLLIUM) PACKET PO SCH ×2 (08:57→19:49)
[2023-02-24] MEDS: KETOROLAC 30 MG/ML 1ML VIAL IV SCH ×4 (02:00→20:32)
[2023-02-24] MEDS: LEVALBUTEROL 1.25MG 0.5ML CONCENTRATE NEB NEB SCH ×4 (02:00→19:35)
[2023-02-24 03:24] VITALS: BP 127/88; TEMP 98.4; O2SAT 99
[2023-02-24] MEDS: PERCOCET 5MG/325MG TAB PO PRN ×2 (06:21→12:17)
[2023-02-24 06:45] LABS: BLOOD UREA NITROGEN 15 MG/DL (9-23); CALCIUM LEVEL 9.3 MG/DL (8.5-10.1); CARBON DIOXIDE LEVEL 30 MMOL/L (20-31); CHLORIDE LEVEL 100 MMOL/L (98-107); GLOMERULAR FILTRATION RATE > 60.0 (>60); GLUCOSE, FASTING 123 MG/DL (60-100); POTASSIUM SERUM 4.4 MMOL/L (3.5-5.1); SODIUM LEVEL 135 MMOL/L (136-145)
[2023-02-24] MEDS: TIOTROPIUM INHALER/CAPSULE (SPIRIVA) INH SCH (07:12)
[2023-02-24 08:26] VITALS: BP 135/89; TEMP 97.6; O2SAT 92
[2023-02-24] MEDS: MIRALAX *UNIT DOSE* 17GM PACKET PO SCH ×2 (09:00→20:33)
[2023-02-24] MEDS: METAMUCIL (PSYLLIUM) PACKET PO SCH ×2 (09:00→20:33)
[2023-02-24] MEDS: MOM 30ML SUSPENSION UDC PO SCH (09:00)
[2023-02-24] MEDS: LORATADINE 10 MG TAB PO SCH (09:06)
[2023-02-24] MEDS: hydroCHLOROthiazide 12.5 MG CAPSULE PO SCH (09:06)
[2023-02-24] MEDS: PANTOPRAZOLE 40MG TAB (PROTONIX) PO SCH (09:06)
[2023-02-24] MEDS: CHLORTHALIDONE 25 MG TAB PO SCH (09:06)
[2023-02-24] MEDS: DOCUSATE SODIUM 100MG CAPSULE PO SCH ×2 (09:06→20:33)
[2023-02-24] MEDS: HEPARIN SOD (PORCINE) 5000UNITS/ML 1ML VIAL/SYRINGE SC SCH ×2 (09:07→20:32)
[2023-02-24] MEDS: NICOTINE 21MG/24HR 1 EA TRANSDERMAL TD SCH (09:07)
[2023-02-24 11:45] VITALS: BP 147/96; TEMP 97.3; O2SAT 94
[2023-02-24 15:51] VITALS: BP 128/75; TEMP 97.1; O2SAT 94
[2023-02-24 19:02] VITALS: BP 124/81; TEMP 97; O2SAT 98
[2023-02-25] VITALS: BP 162/92; TEMP 97.9; O2SAT 96
[2023-02-25] MEDS: LEVALBUTEROL 1.25MG 0.5ML CONCENTRATE NEB NEB SCH ×2 (02:18→07:25)
[2023-02-25] MEDS: KETOROLAC 30 MG/ML 1ML VIAL IV SCH ×2 (02:33→08:52)
[2023-02-25] MEDS: PERCOCET 5MG/325MG TAB PO PRN (02:34)
[2023-02-25 04:00] VITALS: BP 115/74; TEMP 97.9; O2SAT 99
[2023-02-25 06:23] LABS: BLOOD UREA NITROGEN 18 MG/DL (9-23); CALCIUM LEVEL 9.1 MG/DL (8.5-10.1); CARBON DIOXIDE LEVEL 29 MMOL/L (20-31); CHLORIDE LEVEL 100 MMOL/L (98-107); GLOMERULAR FILTRATION RATE > 60.0 (>60); GLUCOSE, FASTING 123 MG/DL (60-100); POTASSIUM SERUM 4.3 MMOL/L (3.5-5.1); SODIUM LEVEL 136 MMOL/L (136-145)
[2023-02-25] MEDS ORDERED: AMLO1TAB25 PO (06:49)
[2023-02-25] MEDS: TIOTROPIUM INHALER/CAPSULE (SPIRIVA) INH SCH (07:25)
[2023-02-25 07:53] VITALS: BP 140/94; TEMP 97.8; O2SAT 98
[2023-02-25] MEDS: PANTOPRAZOLE 40MG TAB (PROTONIX) PO SCH (08:53)
[2023-02-25] MEDS: CHLORTHALIDONE 25 MG TAB PO SCH (08:53)
[2023-02-25] MEDS: LORATADINE 10 MG TAB PO SCH (08:53)
[2023-02-25] MEDS: DOCUSATE SODIUM 100MG CAPSULE PO SCH (08:53)
[2023-02-25] MEDS: hydroCHLOROthiazide 12.5 MG CAPSULE PO SCH (08:53)
[2023-02-25] MEDS: NICOTINE 21MG/24HR 1 EA TRANSDERMAL TD SCH (08:53)
[2023-02-25 08:54] VITALS: BP 140/94
[2023-02-25] MEDS: MOM 30ML SUSPENSION UDC PO SCH (08:54)
[2023-02-25] MEDS: MIRALAX *UNIT DOSE* 17GM PACKET PO SCH (08:54)
[2023-02-25] MEDS: METAMUCIL (PSYLLIUM) PACKET PO SCH (08:54)
[2023-02-25] MEDS: HEPARIN SOD (PORCINE) 5000UNITS/ML 1ML VIAL/SYRINGE SC SCH (08:55)
[2023-02-25] MEDS ORDERED: NAPR-837 PO (10:18)
[2023-02-25] MEDS ORDERED: NICO1DIS12 TOP (10:58)
== END 2023-02-25 12:35 | DRG 120 ==
LOC: EDBD 10:00 → M ED 10:00 → M ED INP 11:25 → ENRESERV 12:16 → M ICU 12:53 → M PCU 15:38 → M ICU 02-18 13:32 → M PCU 02-19 10:40
PROVIDERS: ADMIT Internal Medicine; ATTEND Student in an Organized Health Care Education/Training Program
PROC: 0W9930Z Drainage of Right Pleural Cavity with Drainage Device, Percutaneous Approach (ICD-10-PCS; 2023-02-13)
PROC: 3E0L3GC Introduction of Other Therapeutic Substance into Pleural Cavity, Percutaneous Approach (ICD-10-PCS; 2023-02-18)
PROC: 0BBC4ZZ Excision of Right Upper Lung Lobe, Percutaneous Endoscopic Approach (ICD-10-PCS; principal; 2023-02-18 09:00)
PROC: B246ZZZ Ultrasonography of Right and Left Heart (ICD-10-PCS; 2023-02-20)
DX: J93.83 Other pneumothorax (principal); J98.2 Interstitial emphysema; N13.1 Hydronephrosis with ureteral stricture, not elsewhere classified; J44.9 Chronic obstructive pulmonary disease, unspecified; I45.10 Unspecified right bundle-branch block; I10 Essential (primary) hypertension; J30.2 Other seasonal allergic rhinitis; F17.210 Nicotine dependence, cigarettes, uncomplicated; Z79.899 Other long term (current) drug therapy